=== PATIENT | female | born 1960 | race Caucasian/White ===

== ENCOUNTER 2018-11-15 23:02 | Inpatient (IN) ==
[2018-11-15 23:48] LABS: INR 0.88; PROTIME 12.7 Seconds (11.0-16.0); PTT 28.5 Seconds (22.3-41.8)
[2018-11-15 23:53] LABS: BASO# 0.01 X1000 (0.0-0.2); BASO% 0.1 % (0.0-0.8); HEMATOCRIT 50.5 % (37.0-47.0); HEMOGLOBIN 16.3 g/dL (12.0-16.0); IMM GRAN# 0.02 X1000 (0.0-0.04); IMM GRAN% 0.3 % (0.0-0.5); LYMPH# 1.08 X1000 (1.2-3.4); LYMPH% 15.1 % (20.5-51.1); MCH 34.1 PG (27-31); MCHC 32.3 g/dL (33-37); MCV 105.6 FL (81-99); MONO# 0.32 X1000 (0.11-0.59); MONO% 4.5 % (1.7-9.3); MPV 9.8 FL (7.4-10.4); NEUT# 5.71 X1000 (1.4-6.5); PLT 286 X1000 (130-400); RBC 4.78 XMIL (4.2-5.4); RDW 14.8 % (11.5-14.5); WBC 7.14 X1000 (4.8-10.8)
[2018-11-15 23:56] LABS: ALB/GLOB RATIO 1.3; ALBUMIN 4.5 g/dL (3.5-5.0); CALCIUM 9.3 mg/dL (8.8-10.2); POTASSIUM 4.7 mmol/L (3.5-5.1); TOTAL BILIRUBIN 0.38 mg/dL (0.20-1.00); TOTAL PROTEIN 8.1 g/dL (6.3-8.3)
[2018-11-16 00:24] LABS: URINE SOURCE CLEAN CATCH
[2018-11-16] MEDS ORDERED: DUONEB (A & A) INH ONE (00:44)
[2018-11-16 00:46] LABS: UR AMPHETAMINES QUAL NONE DETECTED (NONE DETECT); UR BARBITUATES QUAL NONE DETECTED (NONE DETECT); UR BENZODIAZEPIN QUAL PRESUMPTIVE POSITIVE (NONE DETECT); UR CANNABINOIDS QUAL PRESUMPTIVE POSITIVE (NONE DETECT); UR COCAINE QUAL NONE DETECTED (NONE DETECT); UR METHADONE QUAL NONE DETECTED (NONE DETECT); UR OPIATES QUAL NONE DETECTED (NONE DETECT); UR OXYCODONE QUAL NONE DETECTED (NONE DETECT); UR PCP QUAL NONE DETECTED (NONE DETECT)
[2018-11-16 00:55] LABS: BILIRUBIN URINE NEGATIVE (NEGATIVE); BLOOD URINE SMALL (NEGATIVE); COLOR YELLOW; GLUCOSE URINE NEGATIVE (NEGATIVE); KETONE URINE 60 mg/dL (NEGATIVE); LEUKOCYTES URINE TRACE (NEGATIVE); NITRITE URINE NEGATIVE (NEGATIVE); PH URINE 6.5; PROTEIN URINE 70 mg/dL (NEGATIVE); SP GRAVITY URINE 1.023; TURBIDITY URINE CLEAR (CLEAR); UR EPITHELIAL CELLS <10 /HPF (<10); URINE BACTERIA NEGATIVE /HPF; URINE WBC <10 /HPF (<10); UROBILINOGEN URINE NORMAL (NORMAL)
[2018-11-16] MEDS ORDERED: SOLU-MEDROL IV ONE (02:11)
[2018-11-16] MEDS ORDERED: TAMIFLU PO ONE (02:23)
--- NOTE | 2018-11-16 02:23 | PROVIDER DOCUMENTATION ---
This chart was entered by Cande Duarte Scribe, acting as scribe for Abraham Rosales MD. HPI-General Adult - General Chief Complaint: Possible Sepsis-D Stated Complaint: sob/cp Time Seen by Provider: 11/15/18 23:26 Source: patient Allergies/Adverse Reactions: Patient Allergies Allergy/AdvReac Type Severity Reaction Status Date / Time No Known Allergies Allergy Verified 10/12/17 10:56 Home Medications: Home Medication List Medication Instructions Recorded Confirmed Last Taken Type Alprazolam [Xanax] 2 mg PO TID 08/19/15 10/12/17 10/10/17 06:30 History Buspirone [Buspar] 10 mg PO TID 01/05/16 10/12/17 10/10/17 06:30 History Levothyroxine [Synthroid] 100 microgm PO DAILY 01/05/16 10/12/17 10/10/17 06:00 History Alprazolam [Xanax] 2 mg PO BID #6 tablet 10/12/17 Unknown Rx Levothyroxine [Synthroid] 100 microgm PO DAILY #30 tab 10/12/17 Unknown Rx Quetiapine Fumarate 200 mg PO BID 10/12/17 10/12/17 10/09/17 17:00 History Quetiapine Fumarate [Seroquel] 200 mg PO BID #10 tab 10/12/17 Unknown Rx - History of Present Illness -Gen Adult Nature of Presenting Problems: Patient is a 58 year old female who presents to the ED with flu like symptoms. Patient states symptoms of generalized body aches, nausea, vomiting, cough, headache, fever and chills. Patient states symptoms started 24 hours ago. Patient states she has had flu contact. Location of Pain/Injury: reports: generalized Pain Radiation: reports: no radiation Quality of Pain: reports: aching Severity: reports: mild Onset/Duration: reports: 24 hours ago Timing: reports: still present Context/Activities at Onset: reports: light activity Modifying Factors: improves with: nothing Associated Symptoms: reports: cough, fever/chills, headaches, nausea, vomiting Similar Symptoms Previously?: Yes Recently seen or treated by another doctor?: No Review of Systems - Adult - REVIEW OF SYSTEMS - ADULT Constitutional: reports: chills, fever. denies: fatique Eyes: reports: no symptoms reported Ears, Nose, Mouth & Throat: reports: no symptoms reported Cardiovascular: reports: no symptoms reported Respiratory: reports: cough. denies: shortness of breath, wheezing Gastrointestinal: reports: nausea, vomiting. denies: abdominal pain, diarrhea Genitourinary: reports: no symptoms reported Musculoskeletal: reports: muscle aches. denies: back pain, neck pain Integumentary: reports: no symptoms reported Neurological: reports: headache/migraines (SUERO). denies: dizziness/vertigo, numbness, seizure, syncope Psychiatric: reports: no symptoms reported Endocrine: reports: no symptoms reported Hematologic/Lymphatic: reports: no symptoms reported Allergic/Immunologic: reports: no symptoms reported All Other Systems: Reviewed and Negative Past History - Adult - PAST MEDICAL HISTORY-ADULT Review of Records: reports: Nursing Assessment Review, Medications Reviewed, Social history reviewed & non-contributory. Major Childhood Illnesses: reports: denies history Cardiovascular: reports: HTN Respiratory: reports: COPD Gastrointestinal: reports: denies history Obstetrical/Gynecological: reports: denies history Genitourinary: reports: denies history Musculoskeletal: reports: chronic pain Neurological: reports: other Psychiatric: reports: anxiety Endocrine/Immune: reports: thyroid disorder Other Conditions: reports: denies history - PRIOR SURGERIES/PROCEDURES Surgical/Procedure History: reports: hysterectomy, hernia repair - IMMUNIZATION STATUS Childhood Immunizations: See Nurse Assessment Flu Vaccine: See Nurse Assessment - FAMILY HISTORY Family History: reviewed, not pertinent - SOCIAL HISTORY Smoking: cigarettes, greater than 1 pack/day Provider spent 3-5 mins advising pt. on dangers of tobacco.: Discussed manners to quit use, and f/u contacts for add'l counseling. Substance Use: denies Physical Exam-General - PHYSICAL EXAM-ADULT Initial Vital Signs Reviewed: Yes - CONSTITUTIONAL General Appearance: alert, mild distress - HEAD, EARS, NOSE, MOUTH & THROAT HENMT: normocephalic/atraumatic, moist mucous membranes - RESPIRATORY Respiratory: chest non-tender, wheezing (bilateral) - CARDIOVASCULAR Cardiovascular: normal peripheral pulses, tachycardia - MUSCULOSKELETAL Back Exam: normal inspection Extremity: normal gait, normal inspection - SKIN Integumentary: normal color, normal turgor, warm/dry - NEUROLOGIC Neurologic: grossly normal - PSYCHIATRIC Psych/Mental Status: normal mood/affect, oriented x 3 Progress - PLAN OF CARE/RESULTS Progress/Plan/Lab Results: Orders Category Date Time Status Cardiac Monitoring DIRECTED Care 11/15/18 23:24 Active IV Insertion ORDERED Care 11/15/18 23:24 Completed Notify MD of + Sepsis Screen NOW Care 11/15/18 23:24 Active Notify Physician As Ordered Care 11/15/18 23:24 Active Nursing- Obtain EKG once Care 11/15/18 22:59 Active CHEST-PORTABLE [RAD] Stat Exams 11/15/18 22:59 Taken BLOOD CULTURE [BLDCUL] Stat Lab 11/15/18 23:18 Ordered BLOOD CULTURE [BLDCUL] Stat Lab 11/15/18 23:27 Ordered CBC WITH DIFF [HEME] Stat Lab 11/15/18 23:24 Uncollected CBC WITH ELECTRONIC DIFF [HEME] Stat Lab 11/15/18 23:18 Results CK PROFILE [SP CHEM] Stat Lab 11/15/18 23:18 Received COMPREHENSIVE METABOLIC PANEL [CHEM] Stat Lab 11/15/18 23:18 Received LACTATE, PLASMA [CHEM] Lab 11/15/18 23:31 Ordered LACTATE, PLASMA [CHEM] Lab 11/16/18 02:30 Uncollected LACTATE, PLASMA [CHEM] Lab 11/16/18 05:30 Uncollected LACTATE, PLASMA [CHEM] Stat Lab 11/15/18 23:18 Received PROTIME WITH INR [COAG] Stat Lab 11/15/18 23:18 Received PTT [COAG] Stat Lab 11/15/18 23:18 Received TROPONIN T Stat Lab 11/15/18 23:18 Received URINALYSIS W/POSS RFLX CULT [URINALYSIS] Stat Lab 11/15/18 23:24 Uncollected URINE DRUG SCREEN Stat Lab 11/15/18 23:31 Uncollected Oxygen Device Stat Oth 11/15/18 23:24 Active EKG [EKG] Stat Ther 11/15/18 22:59 Ordered Result Diagrams: 11/15/18 23:18 11/15/18 23:18 - REASSESSMENT Reassessment #1 Time Reassessed: 02:13 Status: improving (She has much less wheezing after two duo neb treatments but remain hypoxic on RA and does not have home O2 available. Probably best to admit and treat for influenza despite neg swab. I cautioned kirsten to stop smoking) - EKG 1 Time of EKG reading by physician:: 23:08 EKG Read and Signed by:: Abraham Rosales EKG Interpretation (*Must complete 3 of following elements*): Abnormal Rate: 111 Rhythm: sinus tachycardia [place]: normal MI Interval: normal Comments: otherwise normal ECG - CONSULTS/PCP/HOSPITALIST Notification #1 *Consult/PCP/Hospitalist*: Dr Morris Time Discussed: Consult Disposition: Admit Departure - Departure Date of Disposition Decision: 11/16/18 Time of Disposition Decision: : DIAGNOSIS: COPD exacerbation Disposition: ADMITTED INPATIENT 09 Certified Medical Emergency: Emergent Condition: Stable - Critical Care Note This patient required my direct & personal management of CC.: No Attestation - Physician/ SCOTT Attestation The physician spent face to face time with patient:: Yes Advanced Practice Provider documentation review:: Supervising physician onsite and consulted in the evaluation and care of this patient. The physician did have a face to face encounter with the patient. This chart was documented by the indicated scribe, (Cande Duarte Scribe) and accurately reflects the services I performed and decisions made by , Abraham Rosales MD, as attested by the provider's signature.
[2018-11-16] MEDS ORDERED: NICODERM PATCH TD PRN (02:59)
--- NOTE | 2018-11-16 03:23 | HISTORY AND PHYSICAL ---
CHIEF COMPLAINT: Dyspnea. HISTORY OF PRESENT ILLNESS: The patient is a 58-year-old female with a heavy smoking history, anxiety, and hypothyroidism. She presents with 2 days of dyspnea, body aches, and reported fever up to 102 at home. On evaluation in the ED, she was noted to be hypoxic with saturations down to 79. Placed on 5 L of nasal cannula with improvement but was reportedly still desaturating down to the 80s off of oxygen after breathing treatments. She was noted to have some wheezing and decreased air entry. A flu swab was negative but this was favored to represent a false negative and she was thought to have likely influenza with a COPD exacerbation and hypoxia, and so was admitted for further evaluation and treatment. She denied sick contacts. REVIEW OF SYSTEMS: [place] positive review of systems with positive responses for all questions asked including pain at the top of the ear, pain at the end of the toe, leg swelling (no swelling present). was present and stated the patient had endorsed dyspnea, fever, wheezing, body aches, and some nausea without vomiting, some productive cough. ALLERGIES: No known drug allergies. PAST MEDICAL HISTORY: Anxiety, hypothyroidism, substance abuse. PAST SURGICAL HISTORY: Hernia repair. SOCIAL HISTORY: One to one and a half packs per day for 30 plus years. Denies alcohol use. Endorses occasional marijuana use. FAMILY HISTORY: Father from an [place]. Mother, believes her to be but had very little contact with her so was uncertain. LABS: WBCs 7.14, hemoglobin 16.3, hematocrit 50.5, platelets 286,000. PT and INR within normal limits. Sodium 135, potassium 4.7, chloride 94, BUN 14, creatinine 1.0, glucose 133. AST 12, ALT 8, alkaline phosphatase 111. CK 44, troponin negative. Lactate 1.1 and repeat lactate 1.3. Urinalysis with some ketones, a small amount of protein, otherwise unremarkable. Urine drug screen positive for benzodiazepines and cannabinoids. VITAL SIGNS: Heart rate 89 to 119, respiratory rate 20, blood pressure 167/110, initial O2 saturation 79% on room air and most recent O2 saturation 96% on 5 L by nasal cannula. T-max 98.2 degrees. PHYSICAL EXAMINATION: GENERAL: No acute distress. VITAL SIGNS: As above. HEENT: Normocephalic, atraumatic. No cervical adenopathy. Slightly dry mucous membranes. CARDIOVASCULAR: Slightly tachycardic but regular. No murmurs, rubs, or gallops noted. PULMONARY: Slightly decreased air entry throughout. Slight expiratory wheeze noted. No increased work of breathing or accessory muscle use. ABDOMEN: Soft, nontender, nondistended. Bowel sounds positive. EXTREMITIES: Peripheral pulses intact. No clubbing, cyanosis, or edema. NEUROLOGIC: Cranial nerves 2-12 grossly intact. No focal motor or sensory deficits. PSYCHIATRIC: Awake, alert, oriented x3. Slightly odd affect. ASSESSMENT AND PLAN: 1. Chronic obstructive pulmonary disease exacerbation, acute versus chronic hypoxic respiratory failure: Suspect influenza and chronic obstructive pulmonary disease exacerbation. Chest x- ray read pending but no signs of pneumonia on review by me, with no fevers here but reported fever at home and heavy smoking history, as well as some wheezing. Some improvement with DuoNebs in the emergency department. We will continue steroids and breathing treatments. Suspicion for pulmonary embolism is low but we will check a D-dimer and consider CTA if it is significantly elevated. As the patient is suspected to have influenza, we will start her on Tamiflu. We will see how the patient does but suspect she may end up needing home oxygen at discharge. 2. Hypothyroidism. We will continue the patient's home Synthroid. 3. Psychiatric issues. Continue patient's home Seroquel. Xanax listed on patient's home medications and urine drug screen positive for benzodiazepines but prescription drug monitoring program suggests the patient has not had a benzodiazepine prescription in over a year. We will not plan on starting benzodiazepines unless signs of withdrawal develop. 4. Hyperglycemia. No previous history of diabetes. We will monitor glucoses and check A1c. 5. Polysubstance abuse. Patient was counseled on avoidance of marijuana and illicit benzodiazepine use. 6. Tobacco abuse. Patient counseled on cessation. Offered a nicotine patch. 7. Deep vein thrombosis prophylaxis. Lovenox.
[2018-11-16] MEDS ORDERED: ZOFRAN IV PRN (04:16)
[2018-11-16] MEDS: NS 1,000 ML IV SCH (04:44)
[2018-11-16] MEDS: LOVENOX SUBQ SCH (04:44)
[2018-11-16] MEDS: TYLENOL PO PRN ×2 (05:02→22:15)
[2018-11-16 05:11] LABS: ALLEN TEST YES; BE 6.9 mmoll (-3.0-3.0); BLOOD TYPE ARTERIAL; HCO3-(ACT) 29.9 mmoll (20.0-26.0); METHB 0.8 % (0.0-1.5); O2(CT) 19.3 mL/dL (15.0-23.0); PO2(98.6) 54 mmHg (60-100); SAMPLE BLOOD; SAO2 90.7 % (95.0-100.0); THB 16.1 g/dL (11.5-17.4); pH(98.6) 7.38 (7.35-7.45)
[2018-11-16 05:14] LABS: PCO2(98.6) 58 mmHg (35-45)
[2018-11-16 05:15] LABS: MODALITY VENTIMASK; O2HB 85.7 % (95.0-99.0)
[2018-11-16] MEDS: DUONEB (A & A) INH SCH ×6 (07:47→23:05)
--- NOTE | 2018-11-16 07:50 | Diag Imaging Result Doc PS360 ---
EXAM: CHEST-PORTABLE INDICATION: chest pain TECHNIQUE: One view COMPARISON: 02/16/2016 FINDINGS: The lungs are grossly clear. There is no discrete pleural fluid collection or pneumothorax. The cardiomediastinal silhouette and central vasculature are grossly unremarkable. IMPRESSION: No evidence of acute pathology by plain radiograph. Electronically signed by Higinio Lockhart 11/16/2018 7:48 AM
[2018-11-16] MEDS: PHENERGAN PR PRN ×2 (08:15→22:41)
[2018-11-16] MEDS: SEROQUEL PO SCH ×2 (08:15→22:14)
[2018-11-16] MEDS: SOLU-MEDROL IV SCH ×2 (08:17→22:14)
--- NOTE | 2018-11-16 08:21 | Diag Imaging Result Doc PS360 ---
CHEST-PORTABLE - 11/16/2018 INDICATION: dyspnea, hypoxia, copd COMPARISON: 11/15/2018 FINDINGS: The lungs are normally expanded and clear. Heart size and mediastinal contours are normal. No pneumothorax or pleural effusion. IMPRESSION: Negative exam. Electronically signed by Jose Cabral 11/16/2018 8:19 AM
[2018-11-16] MEDS: SYNTHROID PO SCH (08:25)
--- NOTE | 2018-11-16 11:43 | EKG Report ---
Test Performed on : 11/15/2018 11:08:48 PM Test Reason : chest pain Blood Pressure : / mmHG Vent. Rate : 111 BPM Atrial Rate : 111 BPM P-R Int : 146 ms QRS Dur : 072 ms QT Int : 330 ms P-R-T Axes : 079 083 072 degrees QTc Int : 448 ms Sinus tachycardia. Otherwise normal ECG No previous ECGs available Unconfirmed Result
--- NOTE | 2018-11-16 16:50 | PROGRESS NOTE ---
DATE: 11/16/2018 Ms. Rosales was admitted for dyspnea. She has no primary care physician. A 58-year-old with a heavy smoking history, anxiety, hypothyroidism. Presented with a 2-day history of dyspnea, body aches, reported fever up to 102 at home. Evaluation in the emergency room noted to be hypoxic, saturations down around 79% placed on 5 L nasal cannula improved, still desaturating down into the 80s off oxygen after breathing treatments. Noted to have some wheezing and decreased air entry. Flu swab was negative but there was favored to represent a false negative and she was thought to have likely influenza and COPD exacerbation, hypoxemia. She states she is a little better this afternoon. She remains afebrile. Temperature 98.8 degrees, pulse 117, respirations 16, blood pressure 131/76. Pupils are equal and round.Lungs: Clear in all lung ward. Cardiovascular: Regular rhythm, rate without murmur or S3. Abdomen: Soft. Skin: Warm and dry. LAB: Reviewed. White count was 7140, hematocrit 50, platelet count 286,000, sodium 135, potassium 4.7, chloride 94, BUN 14, creatinine 1.0, AST 12, ALT was 8. Pro time is 12.7, PTT is 28. Note that urine drug screen positive for cannabinoids and also for benzodiazepine. Blood gas when she arrived was 7.38 pH, pCO2 58, PO2 was 54, 85% saturations, carboxyhemoglobin was 4.7. Chest x-ray negative, no infiltrates, lungs normally expanded. ASSESSMENT AND PLAN: Chronic obstructive pulmonary disease exacerbation, acute versus chronic hypoxic respiratory failure. Suspect viral or influenza infection even though nasal swabs were negative, chronic obstructive pulmonary disease exacerbation. No signs of infiltrate or pneumonia. Continue duo nebs. I think she would benefit from a broncho steroid inhaler. She is on methylprednisone 60 mg IV b.i.d. and she has a nicotine patch. Normal saline going at 30 mL an hour and she is given Tamiflu 75 mg, will make that 75 mg twice a day. She takes her Seroquel 200 mg b.i.d., methylprednisone was loaded at 80 mg. cc: Pablo Tang MD
[2018-11-16] MEDS: ADVAIR 250/50 DISKUS INH SCH (19:45)
[2018-11-16] MEDS: TAMIFLU PO SCH (22:14)
[2018-11-17] MEDS: DUONEB (A & A) INH SCH ×6 (03:15→23:04)
[2018-11-17] MEDS: LOVENOX SUBQ SCH (05:13)
[2018-11-17] MEDS: NS 1,000 ML IV SCH (05:14)
[2018-11-17] MEDS: SYNTHROID PO SCH (06:31)
[2018-11-17 07:48] LABS: HEMATOCRIT 41.9 % (37.0-47.0); HEMOGLOBIN 13.7 g/dL (12.0-16.0); LYMPH# 0.61 X1000 (1.2-3.4); LYMPH% 5.1 % (20.5-51.1); MCH 34.3 PG (27-31); MCHC 32.7 g/dL (33-37); MCV 104.8 FL (81-99); MONO# 0.44 X1000 (0.11-0.59); MONO% 3.7 % (1.7-9.3); MPV 9.3 FL (7.4-10.4); NEUT# 10.95 X1000 (1.4-6.5); NEUT% 91.2 % (42.2-75.2); PLT 252 X1000 (130-400); RDW 14.9 % (11.5-14.5)
[2018-11-17] MEDS: ADVAIR 250/50 DISKUS INH SCH ×2 (07:55→19:28)
[2018-11-17 08:05] LABS: HEMOGLOBIN A1C 5.2 % (4.8-6.0)
[2018-11-17 08:16] LABS: AGAP 9; BUN 20 mg/dL (8-22); CALCIUM 8.9 mg/dL (8.8-10.2); CHLORIDE 97 mmol/L (98-107); COSMO 280; CREATININE 0.9 mg/dL (0.5-0.9); ESTIMATED GFR > 60; GLUCOSE 169 mg/dL (70-104); POTASSIUM 3.5 mmol/L (3.5-5.1); SODIUM 137 mmol/L (136-145); TCO2 31 mmol/L (25-35)
[2018-11-17 08:52] LABS: BANDS 2 % (0-1); LYMPHS 10 % (21-51); SEGS 88 % (42-75)
[2018-11-17] MEDS ORDERED: TAMIFLU PO SCH (09:00)
[2018-11-17] MEDS: SOLU-MEDROL IV SCH (09:21)
[2018-11-17] MEDS: TAMIFLU PO SCH (09:21)
[2018-11-17] MEDS: SEROQUEL PO SCH ×2 (09:21→22:13)
--- NOTE | 2018-11-17 15:14 | PROGRESS NOTE ---
DATE: 11/17/2018 SUBJECTIVE: This patient states that she is feeling better. She is not wheezing today. She is still requiring oxygen, but probably she can be discharged home tomorrow with or without oxygen. She is feeling better. OBJECTIVE: Vital Signs: Temperature 97.5 degrees, pulse 112, respiratory rate 15, blood pressure 127/77, oxygen saturation 92 on nasal cannula. HEENT: Head normocephalic. No trauma. PERRLA. Neck: Supple. No JVD. No masses. Central trachea. Chest: Decreased breath sounds globally with prolonged expiratory phase. No wheezing. Abdomen: Soft, nontender, nondistended. No hepatosplenomegaly. Extremities: No edema. No clubbing. No cyanosis. Neurological examination: The patient is alert and oriented x3. No focal deficits. LABORATORY: WBC 12, hemoglobin 13.7, hematocrit 41.9 platelet 252. Sodium 137, potassium 3.5, chloride 97, bicarbonate 31. BUN 20, creatinine 0.9 glucose 169, calcium 8.9. ASSESSMENT AND PLAN: 1. Chronic obstructive pulmonary disease exacerbation. This is getting better. Continue with the same management. Hopefully, tomorrow this patient can be discharged home. I will ask for home oxygen evaluation in the morning. 2. Acute hypoxemic and hypercarbic respiratory failure. We will continue with the same treatment. I do believe this patient is getting better. Continue with the same management. Continue with oxygen supplementation. 3. Hypothyroidism. Continue with Synthroid. 4. Anxiety. We will continue with this patient's home Seroquel. 5. Hyperglycemia. Hemoglobin A1c 5.2. This patient does not have diabetes; likely the high blood sugar is due to steroids. 6. Polysubstance abuse. This patient has been highly advised against marijuana and illicit benzodiazepine use. I will continue with daily cessation education. 7. Tobacco abuse. This patient has been highly advised against tobacco use. Offered a nicotine patch. Continue with the same management. I will continue with daily cessation education. 8. Deep vein thrombosis prophylaxis with Lovenox. Overall, this patient is doing much better. I do believe this patient can be discharged home with or without oxygen tomorrow depending on the home O2 evaluation results. I have stopped the Tamiflu because the influenza test results are negative. cc: Edgard Herzog MD
[2018-11-18] MEDS: DUONEB (A & A) INH SCH ×4 (03:32→17:17)
[2018-11-18 05:18] LABS: ALLEN TEST YES; BLOOD TYPE ARTERIAL; HCO3-(ACT) 32.6 mmoll (20.0-26.0); METHB 0.7 % (0.0-1.5); O2(CT) 18.3 mL/dL (15.0-23.0); O2HB 92.8 % (95.0-99.0); PCO2(98.6) 50 mmHg (35-45); PO2(98.6) 64 mmHg (60-100); SAMPLE BLOOD; SAO2 94.5 % (95.0-100.0); pH(98.6) 7.46 (7.35-7.45)
[2018-11-18 05:22] LABS: MODALITY CANNULA
[2018-11-18] MEDS: LOVENOX SUBQ SCH (06:09)
[2018-11-18] MEDS: NS 1,000 ML IV SCH (06:09)
[2018-11-18] MEDS: SYNTHROID PO SCH (06:09)
[2018-11-18] MEDS: ADVAIR 250/50 DISKUS INH SCH (07:31)
[2018-11-18 07:45] LABS: HEMATOCRIT 41.4 % (37.0-47.0); HEMOGLOBIN 13.6 g/dL (12.0-16.0); IMM GRAN# 0.03 X1000 (0.0-0.04); IMM GRAN% 0.3 % (0.0-0.5); LYMPH# 1.86 X1000 (1.2-3.4); LYMPH% 15.9 % (20.5-51.1); MCH 34.4 PG (27-31); MCHC 32.9 g/dL (33-37); MCV 104.8 FL (81-99); MONO# 0.52 X1000 (0.11-0.59); MONO% 4.5 % (1.7-9.3); MPV 9.6 FL (7.4-10.4); NEUT# 9.27 X1000 (1.4-6.5); NEUT% 79.3 % (42.2-75.2); PLT 245 X1000 (130-400); RBC 3.95 XMIL (4.2-5.4); RDW 15.2 % (11.5-14.5); WBC 11.68 X1000 (4.8-10.8)
[2018-11-18 08:01] LABS: AGAP 10; BUN 15 mg/dL (8-22); CALCIUM 8.6 mg/dL (8.8-10.2); CHLORIDE 97 mmol/L (98-107); COSMO 279; CREATININE 0.8 mg/dL (0.5-0.9); ESTIMATED GFR > 60; GLUCOSE 114 mg/dL (70-104); POTASSIUM 3.5 mmol/L (3.5-5.1); SODIUM 139 mmol/L (136-145); TCO2 32 mmol/L (25-35)
[2018-11-18] MEDS: SEROQUEL PO SCH (08:31)
[2018-11-18] MEDS ORDERED: SOLU-MEDROL IV SCH (09:00)
[2018-11-18 12:00] VITALS: BP 118/68
--- NOTE | 2018-11-18 22:41 | DISCHARGE SUMMARY ---
ADMISSION DATE: 11/16/2018 DISCHARGE DATE: 11/18/2018 DISCHARGE DIAGNOSES: 1. Chronic obstructive pulmonary disease exacerbation. 2. Acute hypoxemic and hypercarbic respiratory failure. 3. Hypothyroidism. 4. Anxiety. 5. Hyperglycemia. 6. Polysubstance abuse, especially marijuana and benzodiazepine use. 7. Tobacco abuse. HOSPITAL COURSE: A 58-year-old female with a past medical history of tobacco use, anxiety and hypothyroidism, presented with 2 days of dyspnea, body aches and possible fever. On evaluation in the emergency department she was noted to be hypoxic, with saturations down to 79%. She was placed on 5 L of nasal cannula, with improvement but was reportedly still desaturated down to the 80s off oxygen after breathing treatment. She was noted to be wheezing and with decreased air entry. A flu test was negative. She does have COPD exacerbation and hypoxia, and she was admitted for evaluation and treatment. She denied any sick contacts. The patient was placed on breathing treatment, steroids, oxygen supplementation, and initially she was placed on Tamiflu for the possibility of having influenza, but the test has been negative. After getting the treatment, the patient was feeling much better. She was hyperglycemic, but likely secondary to steroids. Actually, her hemoglobin A1c was 5.2. I had a large conversation with this patient against drug abuse and tobacco abuse, and as per the patient she will stop doing that. Today I ask for home O2 evaluation and this patient does qualify for that. She will be discharged home with oxygen as well as breathing treatment. She is tolerating p.o. and ambulating. She is not complaining of shortness of breath, but she is a little bit hypoxemic. I recommended to this patient to go to a newspaper writer, since she has COPD. DISCHARGE MEDICATIONS: 1. Advair 250/50 Diskus one puff inhaled daily. 2. Albuterol sulfate inhaler 2 puffs inhaled 4 times a day as needed for shortness of breath. 3. Atrovent HFA 2 puff inhaled 4 times a day. 4. Levothyroxine 100 mg p.o. daily. 5. Medrol Dosepak as directed. 6. Seroquel 200 mg p.o. b.i.d. PHYSICAL EXAMINATION: Vital signs: Temperature 97.1 degrees, pulse 94, respiratory rate 15, blood pressure 118/68, oxygen saturation 96 on 3 L nasal cannula. HEENT: Head normocephalic. No trauma. PERRLA. Neck supple. No JVD. No masses. Central trachea. Chest: Decreased breath sounds globally with prolonged expiratory phase. No wheezing. No rales. Abdomen is soft, nontender, nondistended. No hepatosplenomegaly. Extremities: No edema. No clubbing. No cyanosis. Neurological examination: The patient is alert and oriented x3. No focal deficits. LABORATORY DATA: WBC 11.6, hemoglobin 13.6, hematocrit 41.4, platelets 245,000. Sodium 139, potassium 3.5, chloride 97, bicarbonate 32, BUN 15, creatinine 0.8, glucose 114, calcium 8.6. DISCHARGE INSTRUCTIONS: 1. Followup: I have recommended to make an appointment with Dr. Turner, and also follow up with her primary care doctor in 1 or 2 weeks. 2. She needs to stop smoking completely. 3. She will be discharged home with oxygen. 4. She needs to stop marijuana use as well. Time discharging this patient was 35 minutes. cc: Edgard Herzog MD
== END 2018-11-18 18:33 | disposition home or self-care (01) | DRG 189 ==
LOC: ED 23:02 → SUATTDRO 11-16 05:50 → 3N 11-16 05:50
PROVIDERS: ATTEND Internal Medicine
CPT/HCPCS: 71010; 71045; 80048; 80053; 80101; 80301; 80307; 80324; 80345; 80346; 80353; 80358; 80361; 80365; 81001; 82550; 82805; 82948; 83036; 83605; 83992; 84484; 85025; 85379; 85610; 85730; 87040; 87088; 87275; 87276; 87804; 93005; 94640; 94760; 94761; 96361; 96372; 96374; 96375; 99285; A9270; G0431; G0434; G0479; G0480; J1650; J2405; J2930; XXXXX